=== PATIENT | female | born 1995 | race African-American/Black ===

== ENCOUNTER 2017-04-19 11:58 | Emergency (ER) | payer OTHER ==
[~2017-04-19] VITALS: Ht 160 cm; Wt 72.7 kg
[2017-04-19] MEDS ORDERED: MONT10TA21 PO (12:28)
[2017-04-19] MEDS ORDERED: ALBU8HFA IH (12:28)
[2017-04-19] MEDS ORDERED: CETI-290 PO (12:28)
[2017-04-19] MEDS ORDERED: ADV100 IH (12:28)
[2017-04-19 13:14] VITALS: BP 127/73
[2017-04-19] MEDS ORDERED: PENICILLIN G BENZATHINE LA 1,200,000 UNITS/2 ML SYRINGE IM ONE (13:15)
[2017-04-19] MEDS ORDERED: PredniSONE 20 MG TABLET PO ONE (13:15)
== END 2017-04-19 13:33 | disposition left against medical advice (07) ==
LOC: EMS 12:00
DX: J02.0 Streptococcal pharyngitis (principal); J45.909 Unspecified asthma, uncomplicated
CPT/HCPCS: 96372; 99283; J0561; J7512